=== PATIENT | male | born 1990 | race Caucasian/White ===

== ENCOUNTER → 2019-01-03 | Outpatient (CLI) | payer BC | LOC: COL.RAD 09:21 | DX: Z12.89 Encounter for screening for malignant neoplasm of other sites (principal); D12.6 Benign neoplasm of colon, unspecified; Z90.49 Acquired absence of other specified parts of digestive tract | CPT/HCPCS: Q9967 ==

== ENCOUNTER → 2022-05-29 | Outpatient (CLI) | payer BC ==
[~2022-05-29] VITALS: Ht 170.2 cm; Wt 119.0 kg
[2022-05-29] VITALS (15 sets, daily range): BP systolic 113–146; BP diastolic 55–83; PULSE 54–74; TEMP 98.3
[~2022-05-29] MED LIST: ALEVE 220MG220 MG PO; BALANCE B-1001 TA1 PO; NOLVADEX 1010 MG/TAB PO; TAMOXIFEN CITRA20 MG PO
--- NOTE | 2022-05-29 10:23 | NUR ---
pt to ct per ambulation. Pt positioned in prone position on ct table. Monitors applied. O2 on at 2l/nc.
--- NOTE | 2022-05-29 10:50 | NUR ---
Specimens obtained and placed in formalin by Dr Mas. Specimen labeled.
== END ==
LOC: COL.RAD 09:30
DX: N28.89 Other specified disorders of kidney and ureter (principal)
CPT/HCPCS: J2250; J3010

== ENCOUNTER 2023-10-08 14:30 | Inpatient (IN) | payer BC ==
[~2023-10-08] VITALS: Ht 170.2 cm; Wt 99.8 kg
[2023-10-08] MEDS ORDERED: Acetaminophen 500 MG TAB PO ONE (15:00)
[2023-10-08 15:26] LABS: HEMATOCRIT 50.3 % (42.0-52.0); HEMOGLOBIN 17.2 g/dl (13.5-18.0); MEAN CELL VOLUME 86 fl (80.0-100.0); MEAN CORPUSCULAR HEMOGLOBIN 29 pg (27-31); MEAN CORPUSCULAR HGB CONC 34 g/dl (33.0-37.0); MEAN PLATELET VOLUME 9.1 fl (7.4-10.4); PLATELET COUNT 349 K/mm3 (130-400); RED BLOOD COUNT 5.87 M/mm3 (4.20-5.60); REDCELL DISTRIBUTION WIDTH-CV 12.6 % (11.5-14.5)
[2023-10-08] MEDS ORDERED: NS 1,000 ML IV ONE ×2 (15:30→16:00)
[2023-10-08 15:53] LABS: PH 5.5 (5.0-8.5); URINE APPEARANCE CLEAR (CLEAR/HAZY); URINE BLOOD NEGATIVE (NEGATIVE); URINE COLOR YELLOW (YELLOW); URINE GLUCOSE NEGATIVE (NEGATIVE); URINE KETONE NEGATIVE (NEGATIVE); URINE NITRATE NEGATIVE (NEGATIVE); URINE PROTEIN(semi-quant) 1+ (NEGATIVE); URINE UROBILINOGEN 0.2 E.U/dL (0.2-1.0)
[2023-10-08 15:54] LABS: ALBUMIN 2.7 g/dL (3.5-5.0); BILIRUBIN,TOTAL 1.5 mg/dL (0.2-1.2); C-REACTIVE PROTEIN 22.03 mg/dL (0.00-0.50); CALCIUM 9.1 mg/dL (8.4-10.2); CREATININE, serum 1.57 mg/dL (0.72-1.25); POTASSIUM 4.3 mEq/L (3.5-4.5); TOTAL PROTEIN 8.1 g/dl (6.2-8.1)
[2023-10-08 15:59] LABS: BAND 6 % (0-10); LYMPHOCYTE 1 % (20.0-51.0); NEUTROPHILS 91 % (42.0-75.2); PLATELET ESTIMATE NORMAL (NORMAL); TOXIC GRANULATION PRESENT
[2023-10-08 16:13] LABS: TRICYCLIC ANTIDEPRESS URINE NEGATIVE (NEGATIVE)
[2023-10-08 16:25] LABS: COLLECTION METHOD CLEAN CATCH
[2023-10-08] MEDS ORDERED: Iohexol 300 - 100 ML VIAL IV ONE (17:28)
[2023-10-08] MEDS ORDERED: NS 100 ML IV SCH (17:29)
[2023-10-08] MEDS ORDERED: NS 1,000 ML IV SCH (22:00)
[2023-10-08] MEDS ORDERED: Ondansetron 4 MG/2 ML VIAL IV PRN (22:00)
[2023-10-08] MEDS ORDERED: Acetaminophen 325 MG TAB PO PRN (22:00)
[2023-10-09] VITALS (7 sets, daily range): BP systolic 106–125; BP diastolic 67–74; PULSE 73–76; TEMP 97.6–98.7
[2023-10-09 05:13] LABS: HEMATOCRIT 44.1 % (42.0-52.0); HEMOGLOBIN 15.3 g/dl (13.5-18.0); MEAN CELL VOLUME 84 fl (80.0-100.0); MEAN CORPUSCULAR HEMOGLOBIN 29 pg (27-31); MEAN CORPUSCULAR HGB CONC 35 g/dl (33.0-37.0); MEAN PLATELET VOLUME 8.8 fl (7.4-10.4); PLATELET COUNT 282 K/mm3 (130-400); RED BLOOD COUNT 5.23 M/mm3 (4.20-5.60); REDCELL DISTRIBUTION WIDTH-CV 12.9 % (11.5-14.5)
[2023-10-09 05:21] LABS: CALCIUM 8.4 mg/dL (8.4-10.2); CREATININE, serum 1.21 mg/dL (0.72-1.25); POTASSIUM 3.8 mEq/L (3.5-4.5)
[2023-10-09 05:55] LABS: BAND 15 % (0-10); LYMPHOCYTE 1 % (20.0-51.0); NEUTROPHILS 82 % (42.0-75.2); PLATELET ESTIMATE NORMAL (NORMAL)
[2023-10-09 05:56] LABS: BURR CELLS 1+
[2023-10-09] MEDS ORDERED: Iohexol 300 - 100 ML VIAL IV ONE (08:38)
[2023-10-09] MEDS ORDERED: NS 100 ML IV SCH (08:39)
[2023-10-09] MEDS ORDERED: Pantoprazole 40 MG in NS 10 ML IV SCH (09:00)
[2023-10-09] MEDS ORDERED: OSCAL 500 TAB500 MG (10:05)
[2023-10-09] MEDS ORDERED: VITAMIND3 5000 PO (10:05)
[2023-10-09] MEDS ORDERED: COMPLETE MULTI1 TAB PO (10:05)
[2023-10-09] MEDS ORDERED: Meropenem 500 MG in Water For Injection,Sterile 10 ML IV SCH (11:00)
--- NOTE | 2023-10-09 11:53 | NUR ---
Patient admitted to room 315 with SURESH at approximately 1000. Pt a/o x4. Denies pain, nauea or needs at this time. Admission Intake, assessment and med rec completed. NS started to LW at 100ml/hr. Independent in room. Sister, Melly, at bedside.
[2023-10-09] MEDS ORDERED: Tamoxifen 10 MG TAB PO SCH (15:30)
--- NOTE | 2023-10-09 18:19 | NUR ---
Patient inquired about being discharged tonight. Spoke with Dr. Gee and she would like to keep the patient overnight to monitor for fever and check am labs. Patient made aware and verbalizes understanding. Sister still at bedside. Denies pain or needs at this time.
[2023-10-10 03:35] VITALS: BP 117/63; PULSE 63; TEMP 98.6
[2023-10-10 04:05] VITALS: BP_SYST 117
[2023-10-10 07:18] LABS: BASO % 0.2 % (0.0-2.0); EOS % 0.4 % (0.0-4.0); GRAN # 8.6 K/mm3 (1.4-6.5); GRAN % 87.2 % (42.2-75.2); HEMATOCRIT 37.6 % (42.0-52.0); LYMPH # 0.3 K/mm3 (1.2-3.4); LYMPH % 3.1 % (20.0-51.0); MEAN CELL VOLUME 84 fl (80.0-100.0); MEAN CORPUSCULAR HEMOGLOBIN 29 pg (27-31); MEAN CORPUSCULAR HGB CONC 35 g/dl (33.0-37.0); MONO # 0.8 K/mm3 (0.1-0.6); MONO % 8.4 % (1.7-9.3); PLATELET COUNT 263 K/mm3 (130-400); RED BLOOD COUNT 4.47 M/mm3 (4.20-5.60); REDCELL DISTRIBUTION WIDTH-CV 12.8 % (11.5-14.5)
[2023-10-10 07:21] LABS: HEMOGLOBIN 13.1 g/dl (13.5-18.0)
[2023-10-10 07:35] LABS: CREATININE, serum 0.86 mg/dL (0.72-1.25); POTASSIUM 3.1 mEq/L (3.5-4.5)
[2023-10-10 07:42] VITALS: BP 114/70; PULSE 78; TEMP 98.1
--- NOTE | 2023-10-10 09:10 | NUR ---
PATIENT ALERT AND ORIENTED X4. PATIENT ON ROOM AIR. DENIES PAIN AT THIS TIME. PATIENT REPORTS WANTING TO GO HOME SOON.PATIENT FLUIDS RUNNING PER EMAR. PATIENT INDEPENDENT IN ROOM. CALL LIGHT WITHIN REACH. BED AT LOWEST POSITION. NO OTHER CONCERNS AT THIS TIME.
[2023-10-10] MEDS ORDERED: AMOXICILLIN 8751 TAB PO (09:56)
[2023-10-10 09:58] VITALS: BP_SYST 114
--- NOTE | 2023-10-10 10:25 | NUR ---
SW met with patient for intake and to complete discharge planning. Patient lives in [place], PCP is Dr Lanier and pharmacy of choice is [facility]. Patient reports no current DMEs and independent with ADLs. NOK is sister Melly Philliplips [phone]. DPOA information was provided to patient, declined completing at this time. Discharge plan: home
--- NOTE | 2023-10-10 10:50 | NUR ---
PATIENT DISCHARGE INSTRUCTIONS GIVEN. IV REMOVED. PATIENT DENIED ANY QUESTIONS OR CONCERNS. PATIENT INSTRUCTED TO CALL WHEN RIDE IS HERE TO BE ESCORTED OUT BY PCT.
--- NOTE | 2023-10-10 11:01 | NUR ---
PATIENT ESCORTED OUT OF UNIT BY PCT. ALVARES
== END 2023-10-10 11:01 | disposition home or self-care (01) | DRG 641 ==
LOC: COL.ER 14:30 → MEDICAL 22:03
PROVIDERS: Emergency Medicine; Family Medicine; Nurse Practitioner; ADMIT Internal Medicine
DX: E86.0 Dehydration (principal); N17.9 Acute kidney failure, unspecified; R11.2 Nausea with vomiting, unspecified; Z20.822 Contact with and (suspected) exposure to COVID-19; M62.838 Other muscle spasm; N28.89 Other specified disorders of kidney and ureter; R50.9 Fever, unspecified
CPT/HCPCS: J2185; J2470; J7030; Q9967